=== PATIENT | male | born 1940 | race Caucasian/White ===

== ENCOUNTER 2017-09-15 19:32 | Emergency (ER) | payer MEDICARE, OTHER ==
[~2017-09-15] VITALS: Ht 172.7 cm; Wt 92.5 kg
[~2017-09-15 19:32] MED LIST: ADV500 IH; ALBU8HFA IH; ASPI-556 PO; BENA20 PO; GLYB5 PO; INSLAN SQ; METF500T4 PO; SIMV-260 PO; TIOT185 IH
[2017-09-15 19:47] LABS: GLUCOSE,POINT OF CARE 275 MG/DL (70-110)
[2017-09-15] MEDS ORDERED: SODIUM CHLORIDE 0.9% 1,000 ML IV ONE (20:15)
[2017-09-15] MEDS ORDERED: KETOROLAC TROMETHAMINE 30 MG/ML VIAL IVP ONE (20:15)
[2017-09-15 20:23] LABS: BASOPHILS % (AUTO) 0.6 % (0.0-2.0); EOSINOPHILS % (AUTO) 1.3 % (1.0-6.0); HEMATOCRIT 39.7 % (41-53); HEMOGLOBIN 13.3 g/dL (13.5-17.5); LYMPHOCYTES # (AUTO) 1.8 K/uL (1.0-4.8); LYMPHOCYTES % (AUTO) 19.8 % (22.0-44.0); MEAN CORPUSCULAR HEMOGLOBIN 31.2 pg (26.0-34.0); MEAN CORPUSCULAR HGB CONC 33.4 G/dL (31.0-37.0); MEAN CORPUSCULAR VOLUME 93 fL (80-100); MONOCYTES # (AUTO) 0.8 K/uL (0.1-1.0); MONOCYTES % (AUTO) 8.3 % (2.0-9.0); NEUTROPHILS # (AUTO) 6.5 K/uL (1.8-7.7); PLATELET COUNT (AUTO) 269 K/uL (150-450); RED BLOOD CELL COUNT(AUTO) 4.26 MIL/uL (4.50-5.90); RED CELL DISTRIBUTION WIDTH 14.1 % (11.5-14.5)
[2017-09-15 20:31] LABS: CALCIUM, TOTAL 9.2 mg/dL (8.8-10.5); CREATININE 1.44 mg/dL (0.60-1.30); POTASSIUM 3.9 mmol/L (3.5-5.1)
[2017-09-15 20:41] LABS: ALBUMIN 3.3 g/dL (3.4-5.0); BILIRUBIN,TOTAL 0.7 mg/dL (0.1-1.0); TOTAL PROTEIN, SERUM 6.8 g/dL (6.4-8.2)
[2017-09-15] MEDS ORDERED: OLOD4MIS2 IH (20:44)
[2017-09-15] MEDS ORDERED: GLIP10 PO (20:44)
[2017-09-15] MEDS ORDERED: TAMS0.4C32 PO (20:44)
[2017-09-15] MEDS ORDERED: CLOP75 PO (20:44)
[2017-09-15] MEDS ORDERED: FURO20 PO (20:44)
[2017-09-15] MEDS ORDERED: ATOR10TA84 PO (20:44)
[2017-09-15] MEDS ORDERED: ROFL500T PO (20:44)
[2017-09-15 20:53] LABS: PROTHROMBIN TIME 10.2 SEC (9.4-11.6)
[2017-09-15] MEDS ORDERED: NICARDipine 20 MG/DEXT,ISO-OSM 200 ML IV PRN (21:26)
[2017-09-15 22:03] VITALS: BP 139/68
== END 2017-09-15 22:12 | disposition short-term general hospital (02) ==
LOC: EMS 19:33
DX: I62.9 Nontraumatic intracranial hemorrhage, unspecified (principal); I10 Essential (primary) hypertension; E11.9 Type 2 diabetes mellitus without complications; E78.00 Pure hypercholesterolemia, unspecified; J45.909 Unspecified asthma, uncomplicated; Z79.4 Long term (current) use of insulin; Z79.82 Long term (current) use of aspirin
CPT/HCPCS: 70450; 80053; 82962; 83880; 84484; 85025; 85610; 85730; 93005; 96361; 96374; 99291; J1885; J7030

== ENCOUNTER 2020-02-24 22:35 | Emergency (ER) | payer MEDICARE, OTHER ==
[~2020-02-24] VITALS: Ht 175.3 cm; Wt 90.5 kg
[~2020-02-24 22:35] MED LIST changes: -ADV500 IH; +ATOR10TA84 PO; -BENA20 PO; +CLOP-31 PO; +FURO20 PO; +GLIP10 PO; -GLYB5 PO; +METF-960 PO; -METF500T4 PO; +OLOD4MIS2 IH; +ROFL500T PO; -SIMV-260 PO; +TAMS-13 PO; -TIOT185 IH
[2020-02-24] MEDS ORDERED: PRED20 PO (22:55)
[2020-02-24] MEDS ORDERED: INSLAN SQ (23:01)
[2020-02-24 23:37] LABS: HEMATOCRIT 31.4 % (41-53); HEMOGLOBIN 10.3 g/dL (13.5-17.5); MEAN CORPUSCULAR HEMOGLOBIN 30.6 pg (26.0-34.0); MEAN CORPUSCULAR HGB CONC 32.9 G/dL (31.0-37.0); MEAN CORPUSCULAR VOLUME 93 fL (80-100); RED BLOOD CELL COUNT(AUTO) 3.38 MIL/uL (4.50-5.90); RED CELL DISTRIBUTION WIDTH 16.1 % (11.5-14.5)
[2020-02-24 23:38] LABS: BASOPHILS % (AUTO) 0.1 % (0.0-2.0); EOSINOPHILS % (AUTO) 0 % (1.0-6.0); LYMPHOCYTES # (AUTO) 1.2 K/uL (1.0-4.8); LYMPHOCYTES % (AUTO) 11.4 % (22.0-44.0); MONOCYTES # (AUTO) 0.6 K/uL (0.1-1.0); NEUTROPHILS # (AUTO) 8.6 K/uL (1.8-7.7); NEUTROPHILS % (AUTO) 82.5 % (40.0-70.0); PLATELET COUNT (AUTO) 200 K/uL (150-450)
[2020-02-24 23:56] LABS: ALANINE AMINOTRANSFERASE 24 U/L (12-78); ALBUMIN 3.4 g/dL (3.4-5.0); ALKALINE PHOSPHATASE 100 U/L (46-116); ANION GAP 1 mmol/L (8-16); ASPARTATE AMINOTRANSFERASE 13 U/L (15-37); BILIRUBIN,TOTAL 0.3 mg/dL (0.1-1.0); CALCIUM, TOTAL 9.1 mg/dL (8.8-10.5); CHLORIDE 92 mmol/L (98-107); CREATININE 1.99 mg/dL (0.60-1.30); GLOMERULAR FILTR. RATE CALC 32 mL/min (>60); POTASSIUM 3.4 mmol/L (3.5-5.1); SODIUM SERUM 135 mmol/L (136-145); TOTAL PROTEIN, SERUM 7.1 g/dL (6.4-8.2); UREA NITROGEN, BLOOD 56 mg/dL (7-18)
[2020-02-24 23:59] LABS: CARBON DIOXIDE 42 mmol/L (22-29); GLUCOSE,RANDOM 435 mg/dL (70-110)
[2020-02-25 00:03] VITALS: BP 127/64
[2020-02-25 00:12] LABS: GLUCOSE,POINT OF CARE 392 MG/DL (70-110)
== END 2020-02-25 00:54 | disposition home or self-care (01) ==
LOC: EMS 22:35
DX: E78.00 Pure hypercholesterolemia, unspecified (principal); I10 Essential (primary) hypertension; Z79.899 Other long term (current) drug therapy; Z79.4 Long term (current) use of insulin; Z79.82 Long term (current) use of aspirin